=== PATIENT | female | born 1970 | race Caucasian/White ===

== ENCOUNTER 2019-04-14 15:56 | Outpatient (REF) | payer BC, SELFPAY ==
[2019-04-14 22:31] LABS: HCT 44.1 % (36.0-46.0); HGB 13.9 g/dL (12.0-15.5); Mean Corp. HGB Concentration 31.5 g/dL (32.0-36.0); Mean Corpuscular Hemoglobin 29.1 pg (27.0-33.0); Mean Corpuscular Volume 92.5 fL (80-95); Mean Platelet Volume 12.5 fL (8.0-11.0); Platelet Count 243 x1000/uL (130-400); RBC 4.77 m/cumm (4.00-5.20); RBC Distribution Width 13.3 % (11.7-14.6); White Blood Cell Count 5.75 k/cumm (4.4-10.8)
[2019-04-14 22:39] LABS: Hemoglobin A1C 5.4 % (3.8-5.6)
[2019-04-14 22:48] LABS: Calculated LDL 135 mg/dL (<100); Cholesterol 219 mg/dL (<200); HDL Cholesterol 51 mg/dL (40-60); TSH 1.36 uIU/mL (0.36-3.74); Triglyceride 165 mg/dL (<150)
== END 2019-04-14 16:16 ==
LOC: NCHCN 15:56
PROVIDERS: PCP Nurse Practitioner Family; Visit Provider Nurse Practitioner Family
DX: J38.5 Laryngeal spasm (principal); Z13.1 Encounter for screening for diabetes mellitus; Z13.220 Encounter for screening for lipoid disorders; Z51.81 Encounter for therapeutic drug level monitoring
CPT/HCPCS: 80061; 85027; 83036; 84443

== ENCOUNTER 2021-04-25 11:34 | Outpatient (REF) | payer OTHER, SELFPAY ==
--- NOTE | 2021-04-25 10:00 | PAPFT_PTH ---
PATIENT: Farzad Fowler LOC: [facility]#:[id number] AGE/SX: 50/F ROOM: RE04/25/[address]: Grace Worthington : 1970 BED: DIS: 04/25/2021 SPEC #: [id number] RECD: 04/25/21 18:19 STATUS: WILLY REGayathri #: [id number] LURDES: 04/25/21 10:[address]: Grace Rosario DEPT: [facility] Cytology RECD BY: Paola Hearn Tissues: 1 - CX/ENDOCX FOR PAP SMEARS Procedures: PAP THIN PREP/[facility] Screening HPV DNA PROBE Comments: [id number]
== END 2021-04-25 11:35 | disposition home or self-care (01) ==
LOC: NCHCN 11:34
PROVIDERS: PCP Nurse Practitioner Family; Visit Provider Nurse Practitioner Family
DX: Z12.4 Encounter for screening for malignant neoplasm of cervix (principal); Z11.51 Encounter for screening for human papillomavirus (HPV)
CPT/HCPCS: 88142; 87624

== ENCOUNTER 2021-07-25 18:58 | Outpatient (REF) | payer OTHER, SELFPAY ==
[2021-07-25 15:32] LABS: HCT 44.8 % (36.0-46.0); HGB 13.9 g/dL (11.2-15.7); MCH 29.6 pg (27.0-33.0); MCV 95 fL (80-95); MPV 12.5 fL (8.0-11.0); Platelet Count 216 10^3/uL (130-400); RDW 12.3 % (11.7-14.6); RDW-SD 43.8 fL; WBC 6.96 10^3/uL (4.4-10.8)
[2021-07-25 16:05] LABS: BUN 8 mg/dL (7-18); CREATININE 0.9 mg/dL (0.55-1.02); Calcium 8.7 mg/dL (8.5-10.1); Chloride 106 mmol/L (98-107); Glucose 91 mg/dL (74-106); Potassium 4.5 mmol/L (3.5-5.1); Sodium 140 mmol/L (136-145); TSH 1.16 uIU/mL (0.36-3.74)
== END 2021-07-25 18:59 | disposition home or self-care (01) ==
LOC: NCHCN 18:58
PROVIDERS: PCP Nurse Practitioner Family; Visit Provider Nurse Practitioner Family
DX: Z00.00 Encounter for general adult medical examination without abnormal findings (principal); Z79.899 Other long term (current) drug therapy; E66.9 Obesity, unspecified
CPT/HCPCS: 80048; 85027; 84443

== ENCOUNTER 2023-12-10 08:35 | Outpatient (REF) | payer OTHER, SELFPAY ==
[2023-12-10 14:45] LABS: HCT 44.4 % (36.0-46.0); HGB 13.9 g/dL (11.2-15.7); MCH 29.1 pg (27.0-33.0); MCHC 31.3 % (32.0-36.0); MCV 93 fL (80-95); MPV 12.3 fL (8.0-11.0); Platelet Count 256 10^3/uL (130-400); RBC 4.77 10^6/uL (3.93-5.22); RDW 12.7 % (11.7-14.6); RDW-SD 43.7 fL; WBC 7.74 10^3/uL (4.4-10.8)
[2023-12-10 15:10] LABS: Hemoglobin A1C 5.2 % (<5.7)
[2023-12-10 15:27] LABS: ALT 14 U/L (14-59); AST 17 U/L (15-37); Albumin 3.7 g/dL (3.4-5.0); Alkaline Phosphatase 88 U/L (46-116); Anion Gap 10.4 mmol/L (3-11); BUN 8 mg/dL (7-18); Bilirubin, Total 0.46 mg/dL (0.2-1.0); CO2 24.6 mmol/L (21.0-32.0); CREATININE 0.9 mg/dL (0.55-1.02); Calcium 9.1 mg/dL (8.5-10.1); Calculated LDL 160 mg/dL (<100); Chloride 105 mmol/L (98-107); Cholesterol 253 mg/dL (<200); Estimated GFR 76.44 (mL/min/1.73m2); Glucose 97 mg/dL (74-106); HDL Cholesterol 75 mg/dL (40-60); Potassium 4.9 mmol/L (3.5-5.1); Sodium 140 mmol/L (136-145); TSH 3.41 uIU/Ml (0.36-3.74); Total Protein 6.9 g/dL (6.4-8.2); Triglyceride 92 mg/dL (<150)
== END 2023-12-10 08:36 | disposition home or self-care (01) ==
LOC: NCHCN 08:35
PROVIDERS: PCP Nurse Practitioner Family; Visit Provider Nurse Practitioner Family
DX: Z13.1 Encounter for screening for diabetes mellitus (principal); Z13.220 Encounter for screening for lipoid disorders; Z51.81 Encounter for therapeutic drug level monitoring; R53.83 Other fatigue
CPT/HCPCS: 80053; 80061; 85027; 83036; 84443

== ENCOUNTER 2023-12-17 14:54 | Outpatient (REF) | payer OTHER, SELFPAY ==
--- NOTE | 2023-12-17 10:40 | SKI_PTH ---
PATIENT: Farzad Fowler LOC: [facility] U#:[id number] AGE/SX: 53/F ROOM: RE12/17/[address]: Grace Worthington : 1970 BED: DIS: 12/17/2023 SPEC #: [id number] RECD: 12/17/23 16:52 STATUS: WILLY SWANSON #: [id number] LURDES: 12/17/23 10:[address]: Grace Rosario DEPT: Surgical Specimen RECD BY: Paola Hearn Tissues: 1 - SKIN BIOPSY(SHAVE/PUNCH) Procedures: SKIN LEVEL 4 Comments: [id number]
== END 2023-12-17 14:55 | disposition home or self-care (01) ==
LOC: NCHCN 14:54
PROVIDERS: PCP Nurse Practitioner Family; Visit Provider Nurse Practitioner Family
DX: D22.61 Melanocytic nevi of right upper limb, including shoulder (principal)
CPT/HCPCS: 88305